=== PATIENT | male | born 1980 | race Caucasian/White ===

== ENCOUNTER → 2020-07-20 | Outpatient (CLI) | payer SELFPAY ==
[~2020-07-20] VITALS: Ht 177 cm; Wt 86.0 kg
[~2020-07-20] MED LIST: REGADENOSON 0.4 MG/5 ML SYR (LEXISCAN) IV ONE
[2020-07-20] MEDS: CATHETER FLUSH 10 ML SYR IV PRN ×2 (10:29→11:21)
[2020-07-20 11:20] VITALS: BP 132/88
--- NOTE | 2020-07-20 15:20 | STRESS TEST ---
DATE OF SERVICE: 07/20/2020 RESTING AND POST REGADENOSON TECHNETIUM-99M TETROFOSMIN SPECT CT IMAGING CLINICAL DIAGNOSES: Chest discomfort, tobacco use, hyperlipidemia. Baseline images were carried out after injection of 10.46 mCi of technetium-99m Tetrofosmin. This was followed by 0.4 mg of Regadenoson and 31.5 mCi of technetium-99m Tetrofosmin at stress imaging. The electrocardiogram showed sinus rhythm at baseline. It did not change significantly with the Regadenoson infusion. Review of images at rest and following stress indicates a small basal anterior perfusion defect, which appears transient. Gated images showed normal global left ventricular systolic function with a normal regional wall motion. Left ventricular ejection fraction is calculated to be 55%. Left ventricular end diastolic volume is 72 mL. TID is absent (1.08). CONCLUSIONS: 1. This study is suggestive of a small amount of basal anterior ischemia. 2. Normal regional wall motion. 3. Normal global left ventricular systolic function with a calculated ejection fraction of 55%. Job ID: [id number] DocumentID: [id number] Dictated Date: 07/20/2020 14:18:22 Weather Forecaster Date: 07/20/2020 15:19:02 Dictated By: EDITH CORDON MD, MA, FACP, FACC,
== END ==
LOC: CARD 09:22
PROVIDERS: ATTEND Internal Medicine Cardiovascular Disease
DX: R07.89 Other chest pain (principal); E78.5 Hyperlipidemia, unspecified; Z72.0 Tobacco use; Z82.49 Family history of ischemic heart disease and other diseases of the circulatory system
CPT/HCPCS: 78452; 93017; 93306; A9502

== ENCOUNTER 2020-08-24 10:00 | Day surgery (SDC) | payer SELFPAY ==
[~2020-08-24] VITALS: Ht 177.8 cm; Wt 91.0 kg
[2020-08-24] VITALS (11 sets, daily range): BP systolic 111–129; BP diastolic 53–89
[2020-08-24 07:59] LABS: HEMOGLOBIN 16.8 g/dL (13.3-17.7); MEAN PLATELET VOLUME 10.6 fL (9.0-12.2); WHITE BLOOD COUNT 5.7 10^3/uL (4.3-11.0)
[2020-08-24 08:25] LABS: ALANINE AMINOTRANSFERASE 58 U/L (0-55); ALBUMIN 4.2 GM/DL (3.2-4.5); ALKALINE PHOSPHATASE 71 U/L (40-136); BILIRUBIN,TOTAL 1.5 MG/DL (0.1-1.0); BUN/CREATININE RATIO 13; CALCIUM 8.9 MG/DL (8.5-10.1); CARBON DIOXIDE 29 MMOL/L (21-32); CHLORIDE 106 MMOL/L (98-107); CHOLESTEROL 155 MG/DL (< 200); CREATININE SERUM 1.06 MG/DL (0.60-1.30); GFR ESTIMATED > 60; GLUCOSE 120 MG/DL (70-105); HDL CHOLESTEROL 36 MG/DL (40-60); POTASSIUM 4.3 MMOL/L (3.6-5.0); SODIUM 142 MMOL/L (135-145); TOTAL PROTEIN 6.8 GM/DL (6.4-8.2); TRIGLYCERIDES 179 MG/DL (<150); VLDL CHOLESTEROL 36 MG/DL (5-40)
[2020-08-24 08:28] LABS: PROTHROMBIN TIME PATIENT 13.1 SEC (12.2-14.7)
[~2020-08-24 10:00] MED LIST changes: +ASPI-1238 PO; +ATOR40TA70 PO; +BACL10TA PO; +FLUO40CA12 PO; +GABA300S2 PO; +HEParin (CATH LAB) 2,000 ML IV ONE; +LIDOCAINE 1% INJ 20 ML 20 ML VIAL ONE; +MELO15TA39 PO; +MIDAZOLAM 5 MG/5 ML (VERSED) VIAL ONE; +NS IV 1000 ML 1,000 ML IV SCH; +NS IV 1000 ML 1,000 ML ONE; +OLAN10TA19 PO; +OMEG-154 PO; -REGADENOSON 0.4 MG/5 ML SYR (LEXISCAN) IV ONE; +fentaNYL INJECTION 100 MCG/2 ML AMP ONE
--- NOTE | 2020-08-24 10:37 | CARDIAC CATHETERIZATION ---
DATE OF SERVICE: 08/24/2020 CARDIAC CATHETERIZATION REPORT INDICATIONS FOR PROCEDURE: The patient is a 40-year-old man, who has had chest discomfort and a recent myocardial perfusion imaging study was indicative of a small amount of basal anterior ischemia. Due to this and his continuing chest discomfort and multiple risk factors, cardiac catheterization was recommended. Informed consent was obtained. DESCRIPTION OF PROCEDURE: He was brought to the cardiac catheterization laboratory in a fasting state. Right groin was prepared and draped in the usual sterile fashion. Lidocaine 1% was used for local anesthesia. Modified Seldinger technique was used to advance a 5-Qatari sheath in the right femoral artery, 5-Qatari JL4 catheter was used for left coronary angiography, 5-Qatari JR4 catheter for right coronary angiography, 5-Qatari pigtail catheter was used for left heart catheterization and left ventricular angiography. He tolerated the procedure well. At the end of the procedure, angiography of the right femoral artery was carried out through the sheath. Mynx was used to achieve hemostasis. HEMODYNAMICS: Left ventricular end-diastolic pressure following coronary angiography was 11 mmHg. There was no significant pressure gradient on pullback across the aortic valve. LEFT VENTRICULAR ANGIOGRAPHY: Left ventricular angiography was carried out in the right anterior oblique projection. Global left ventricular systolic function is normal. No regional wall motion abnormality is seen. Left ventricular ejection fraction is approximately 65%. CORONARY ANGIOGRAPHY: Left main coronary artery, left anterior descending artery, left circumflex artery, right coronary artery does not exhibit angiographically significant disease. Right coronary artery is dominant. CONCLUSIONS: 1. No angiographically significant coronary artery disease. 2. Normal left ventricular end-diastolic pressure. 3. Normal global left ventricular systolic function with an ejection fraction of approximately 65%. DISCUSSION AND RECOMMENDATIONS: Based on the results of the study, chest discomfort does not appear to be of coronary origin. Continuing risk factor modification is advised. Outpatient followup is advised. Job ID: [id number] DocumentID: [id number] Dictated Date: 08/24/2020 10:21:46 Watch Technician Date: 08/24/2020 10:37:05 Dictated By: EDITH CORDON MD, MA, FACP, FACC,
--- NOTE | 2020-08-24 12:31 | Cardiac Procedure Note-CS/ASA ---
Pre-Procedure Note Pre-Op Procedure Note H&P Reviewed The H&P was reviewed, patient examined and no changes noted. Date H&P Reviewed: Aug 24, 2020 Time H&P Reviewed: 09:30 Conscious Sedation Pre-Proced Time 09:30 ASA Score 3 For ASA 3 and 4: Consider anesthesia and medical clearance. Also, for patients with a history of failed moderate sedation consider anesthesia. Airway Lungs Heart ASA score ASA 1: a normal healthy patient ASA 2: a patient with a mild systemic disease (mid diabetes, controlled hypertension, obesity ASA 3: a patient with a severe systemic disease that limits activity (angina, COPD, prior Myocardial infarction) ASA 4: a patient with an incapacitating disease that is a constant threat to life (CHF, renal failure) ASA 5: a moribund patient not expected to survive 24 hrs. (ruptured aneurysm) ASA 6: a declared brain- patient whose organs are being harvested. For emergent operations, add the letter E after the classification Mallampati Classification Grade 2 Sedation Plan Analgesia, Amnesia, Plan communicated to team members, Discussed options with patient/fam, Discussed risks with patient/fam The patient is an appropriate candidate to undergo the planned procedure, sedation, and anesthesia. The patient immediately re-assessed prior to indication. EDITH CORDON MD FACP FAC CCDS Aug 24, 2020 12:31
--- NOTE | 2020-08-24 12:34 | Discharge Inst-Post CATH ---
Discharge Inst-CATH/EP Post Cardiac Cath/EP D/C Inst Follow Up/Plan F/u with Dr Beth in 2 weeks ACTIVITY * Go Home directly and rest. * Limit activity of the leg (or wrist if it was used) for 7 days including aerobics, swimming, jogging, bicycling, etc. * Restrict stair-climbing for 7 days if possible, if not, climb up with your no n-cath leg, then bring together on the same step. * Avoid lifting, pushing, pulling or excessive movement of the affected ext remity for 7 days. * Customary sexual activity may be resumed after 2 days-use caution not to use a position that strains or causes pain to the affected extremity. * No driving for 24 hours. * NO SMOKING. * Avoid straining for bowel movements for 7 days. * Gentle walking on level ground is allowed. * Returning to work will depend on the type of procedure and the results. Your doctor will discuss this with you. CALL YOUR DOCTOR FOR ANY OF THE FOLLOWING: *If bleeding from the puncture site occurs- Apply gentle pressure to site with clean cloth and call your doctor or EMS. * If a knot or lump forms under the skin, increases in size, or causes pain. * If bruising appears to be worsening or moving further down your leg instead of disappearing. * Temperature above 101 F. CARE OF YOUR GROIN INCISION; * Bruising or purple discoloration of the skin near the puncture site is common. * You may shower only, no bathtub bathing for 5 days. Be careful to avoid slipping as your leg may feel stiff. * If a closure device was used on your femoral artery, please see the attached guide regarding care of the device and your leg. * Leave dressing on FOR 24 hours. CARE OF YOUR WRIST INCISION; * Bruising or purple discoloration of the skin near the puncture site is common. * You may shower. * DO NOT submerge wrist. * Leave dressing on FOR 24 hours. EDITH BETH MD FACP FAC CCDS Aug 24, 2020 12:34
--- NOTE | 2020-08-24 12:34 | Discharge Inst-Cardiology ---
Discharge Inst-Cardiac Discharge Medications Continued Medications: Atorvastatin Calcium (Atorvastatin Calcium) 40 Mg Tablet 40 MG PO HS, TAB Baclofen (Baclofen) 10 Mg Tablet 10 MG PO BID, TAB Fluoxetine HCl (Prozac) 40 Mg Capsule 40 MG PO DAILY, CAP Gabapentin (Gabapentin) 300 Mg/6 Ml Solution 300 MG PO BID, EA Meloxicam (Meloxicam) 15 Mg Tablet 15 MG PO DAILY, TAB Olanzapine (Olanzapine) 10 Mg Tablet 10 MG PO DAILY, TAB Larimore-3S/Dha/Epa/Fish Oil (Fish Oil Larimore-3 Softgel) 1 Each Capsule.dr 1 EACH PO HS, CAP Discontinued Medications: Aspirin (Aspirin EC) 81 Mg Tablet. 81 MG PO HS, TAB EDITH CORDON MD FACP FAC CCDS Aug 24, 2020 12:33
[2020-08-24] MEDS ORDERED: PATIENT MAY USE OWN MEDS, ALL PO SCH (12:45)
[2020-08-24] MEDS ORDERED: NS IV 1000 ML 1,000 ML IV SCH (12:45)
== END 2020-08-24 13:55 | disposition home or self-care (01) ==
LOC: SDC 10:51 → CATH 13:55
PROVIDERS: ATTEND Internal Medicine Cardiovascular Disease
DX: R07.89 Other chest pain (principal); R94.39 Abnormal result of other cardiovascular function study; E78.2 Mixed hyperlipidemia; F41.9 Anxiety disorder, unspecified; F32.9 Major depressive disorder, single episode, unspecified; M54.12 Radiculopathy, cervical region; Z79.82 Long term (current) use of aspirin; Z79.899 Other long term (current) drug therapy; Z88.8 Allergy status to other drugs, medicaments and biological substances; Z87.891 Personal history of nicotine dependence; Z80.9 Family history of malignant neoplasm, unspecified
CPT/HCPCS: 80053; 80061; 85027; 85610; 85730; 87081; 93458; C1760; C1894; 36415